=== PATIENT | female | born 1990 | race Caucasian/White ===

== ENCOUNTER 2017-05-24 12:23 | Day surgery (SDC) | payer OTHER ==
[~2017-05-24] VITALS: Ht 167.6 cm; Wt 89.0 kg
[~2017-05-24 12:23] MED LIST: CALC-649 PO; FERR-55 PO; FERR27TA PO; HYDR-3498 PO; IBUP800T25 PO; PREN-39 PO; PREN1TAB49 PO
[2017-05-24 13:16] VITALS: Ht 167.6 cm; Wt 89.0 kg
[2017-05-24] MEDS ORDERED: OMEPRAZOLE (13:24)
[2017-05-24 15:49] VITALS: BP 141/63; PULSE 60; RESP 18
--- NOTE | 2017-05-24 16:05 | OPPN ---
Date/Time of Note Date/Time of Note DATE: 05/24/17 TIME: 16:02 Proc Note GI Procedure Date 05/24/17 Pre-procedure Diagnosis * Dyspepsia Post-procedure Diagnosis Impression: * Mild gastritis. Rule out H. pylori infection. Biopsies obtained Plan: * PPI therapy * Review pathology * Follow-up as previously scheduled . Procedure Performed: Endoscopy, Other ( with biopsies) Surgeon LAURA RAMSAY MD Thread Drawer none Anesthesia Type: moderate sedation (Versed 5 mg/fentanyl 75 mcg IV push) Tourniquet Time none EBL none Transfusion required none Biopsy 1: Gastric body and antrum/rule out H. pylori infection Grafts/Implants none Tubes/Drains none Complication(s) none Pt Condition post procedure: stable Disposition: home Indications: other (Dyspepsia) Procedure Description Preoperative Diagnosis: After informed consent, with the patient/relatives understanding the procedure, its indications, potential risks and complications, including but not limited to : allergic reaction, bleeding, perforation or infection, and after all pertinent questions were answered to the patients satisfaction, the patient/ relatives signed witnessed informed consent. Following this, premedication was administered slowly IV push under careful cardiovascular and respiratory monitoring with pulse oximetry, automatic blood pressure, and youth nutritional monitor. Once the sedative effect was achieved the patient was place in the left lateral decubitus, the panendoscope was introduced and advanced under visual control. Careful examination of the upper gastrointestinal tract, both on insertion as well as withdrawal of the instrument disclosing the following findings: ESOPHAGUS: the mucosa of the entire esophagus was carefully examined and showed the following findings: the mucosa appears within normal limits. There is no evidence of esophagitis, varices, neoplasm, or stricture. No Hiatal Hernia identified. STOMACH: Upon entrance to the stomach air was insufflated, the gastric owen distended normally. The mucosa of the fundus, body and antrum of the stomach was carefully examined both head-on and on retroflexion, and showed the following findings: There is mild erythema and edema of the mucosa of the body and antrum of the stomach. Biopsies were obtained to rule out H. pylori infection. Otherwise the mucosa appears within normal limits with no abnormalities. There is no evidence of ulcers or neoplasm. PYLORUS: The pylorus was carefully examined and showed the following findings: the pylorus appears patent and within normal limits, with no evidence of gastric outlet obstruction. DUODENUM: The duodenal mucosa was carefully examined in the duodenal bulb as well as the second portion of the duodenum and showed the following findings: the mucosa appears unremarkable with no evidence of duodenitis, ulcer or neoplasm. Copies To: CC: LAURA RAMSAY MD, MORDO MD May 24, 2017 16:05
[2017-05-24] MEDS ORDERED: MIDAZOLAM 1 MG/ML 2 ML INJ ONE ×3 (16:30)
[2017-05-24] MEDS ORDERED: FENTAnyl 50 MCG/ML VIAL ONE (16:30)
== END 2017-05-24 16:49 | disposition home or self-care (01) ==
LOC: GIL 12:23
PROVIDERS: ATTEND Internal Medicine Gastroenterology
DX: R10.13 Epigastric pain (principal); R12 Heartburn; R14.0 Abdominal distension (gaseous); R19.7 Diarrhea, unspecified; D64.9 Anemia, unspecified; K90.49 Malabsorption due to intolerance, not elsewhere classified; R11.0 Nausea; K29.50 Unspecified chronic gastritis without bleeding
CPT/HCPCS: 43239; 84703; 88305; 88312; J2250; J3010; Z7610